=== PATIENT | female | born 1995 | race Hispanic/Latino ===

== ENCOUNTER 2017-09-14 12:27 | Emergency (ER) | payer BC ==
[~2017-09-14] VITALS: Ht 154.9 cm; Wt 53.5 kg
[2017-09-14 13:13] LABS: BASOPHILS # (AUTO) 0.1 (0.0-0.1); BASOPHILS % 0.4 % (0.0-1.0); EOSINOPHILS % 0.3 % (0.0-6.0); HEMATOCRIT 36.5 % (34.2-44.1); HEMOGLOBIN 12.5 g/dL (12.0-16.0); LYMPHOCYTES # (AUTO) 2.4 (1.0-3.2); LYMPHOCYTES % 20.2 % (18.0-39.1); MEAN CORPUSCULAR HEMOGLOBIN 29.2 pg (28-32); MEAN CORPUSCULAR HGB CONC 34.2 g/dL (31-35); MEAN CORPUSCULAR VOLUME 85.3 fL (81-99); MONOCYTES # (AUTO) 0.8 (0.2-0.8); MONOCYTES % 6.8 % (4.4-11.3); NEUTROPHILS # (AUTO) 8.4 (2.1-6.9); PLATELET COUNT 250 x10e3/uL (140-360); RED BLOOD COUNT 4.28 x10e6/uL (3.6-5.1); RED CELL DISTRIBUTION WIDTH 13.6 % (11.7-14.4)
[2017-09-14 13:17] LABS: BILIRUBIN,URINE NEGATIVE (NEGATIVE); KETONES,URINE NEGATIVE (NEGATIVE); LEUKOCYTE ESTERASE ,URINE 2+ (NEGATIVE); NITRITE,URINE NEGATIVE (NEGATIVE); PROTEIN,URINE DIPSTICK NEGATIVE (NEGATIVE); URINE UROBILINOGEN 0.2 mg/dL (0.2 - 1)
[2017-09-14 13:22] LABS: COLOR,URINE YELLOW (YELLOW)
[2017-09-14 13:23] LABS: CLARITY,URINE SL CLOUDY (CLEAR)
[2017-09-14 13:27] LABS: ANION GAP 12.6 mmol/L (8-16); BLOOD UREA NITROGEN 10 mg/dL (7-26); BUN/CREATININE RATIO 16 (6-25); CALCIUM 8.6 mg/dL (8.4-10.2); CARBON DIOXIDE 24 mmol/L (22-29); CHLORIDE 104 mmol/L (98-107); CREATININE, SERUM 0.64 mg/dL (0.57-1.11); EST GLOMERULAR FILTRATION RATE > 60 ML/MIN (60-); GLUCOSE 90 mg/dL (74-118); POTASSIUM 3.6 mmol/L (3.5-5.1); SODIUM 137 mmol/L (136-145)
[2017-09-14 13:35] LABS: HCG,QUANTITATIVE < 1.20 mIU/mL (0-10)
[2017-09-14 14:07] LABS: EPITHELIAL CELLS,URINE MODERATE /LPF; WBC,URINE (MAN) 21-50 /HPF (0-5)
[2017-09-14] MEDS ORDERED: AZITHROMYCIN 250 MG TAB PO STA (17:20)
[2017-09-14] MEDS ORDERED: ONDANSETRON HCL INJ 2 MG/ML VIAL IV STA (17:20)
[2017-09-14] MEDS ORDERED: METRONIDAZOLE 500 MG TAB PO ONE (17:30)
[2017-09-14] MEDS ORDERED: CEFTRIAXONE SOD 250 MG VIAL INJ ONE (17:30)
--- NOTE | 2017-09-14 18:11 | Diagnostic Imaging Report ---
PROCEDURE:TRANSVAGINAL ULTRASOUND COMPARISON:None. INDICATIONS:LEFT ADNEXAL TENDERNESS for one month, CONCERN FOR TOA TECHNIQUE: Grayscale transverse and sagittal transabdominal and transvaginal images were obtained of the pelvis. Transvaginal imaging was medically necessary to better evaluate the endometrium.. FINDINGS: 22 year-old G3, P1, A1 female patient with stated LMP 08/18/2017 UTERUS: 6.9 x 4.6 x 5.7 cm. No focal lesions. Normal echogenicity. 0.7 cm anechoic nabothian cyst in the cervix. ENDOMETRIUM: 1.6 cm. Homogeneously hyperechoic, without focal thickening. Echogenic IUD in place, with the distal portion in the fundus. RIGHT OVARY: 2.8 x 1.5 x 2.0 cm. No focal lesions. Normal follicles are identified. LEFT OVARY: 2.6 x 1.7 x 2.2 cm. No focal lesions. Normal follicles are identified. There is no free fluid within the pelvis. No adnexal masses. CONCLUSION: 1. Normal bilateral ovaries. No sonographic evidence of TOA. 2. IUD in place in satisfactory position. Torey Hussein M.D. Dictated by: Torey Hussein M.D. on 09/14/2017 at 18:10 Electronically approved by: Torey Hussein M.D. on 09/14/2017 at 18:10
== END 2017-09-14 19:54 | disposition home or self-care (01) ==
LOC: ER 12:27
DX: N73.9 Female pelvic inflammatory disease, unspecified (principal); R10.32 Left lower quadrant pain; Z97.5 Presence of (intrauterine) contraceptive device
CPT/HCPCS: 36415; 76830; 80048; 81001; 84702; 85025; 87081; 87086; 87205; 87210; 99285; J0696; J2405